=== PATIENT | female | born 1970 ===

== ENCOUNTER 2021-09-30 22:45 | Emergency (ER) | payer MEDICAID ==
[~2021-09-30] VITALS: Ht 157.5 cm; Wt 64.9 kg
[2021-09-30 23:01] VITALS: BP 102/59
== END 2021-09-30 23:39 | disposition left against medical advice (07) ==
LOC: ER 22:45
DX: R44.2 Other hallucinations (principal); Z53.21 Procedure and treatment not carried out due to patient leaving prior to being seen by health care provider